=== PATIENT | male | born 1945 | race Caucasian/White ===

== ENCOUNTER 2017-01-18 08:30 | Outpatient (RCR) | payer BC | END 2017-02-13 | disposition home or self-care (01) | LOC: PTY 08:30 | DX: M54.2 Cervicalgia (principal) ==

== ENCOUNTER 2017-02-18 09:30 | Outpatient (RCR) | payer BC | END 2017-03-16 | disposition home or self-care (01) | LOC: PTY 09:30 | DX: M54.2 Cervicalgia (principal) | CPT/HCPCS: 97035; 97110; 97140; G0283 ==

== ENCOUNTER 2017-03-22 10:15 | Outpatient (RCR) | payer BC | END 2017-04-15 | disposition home or self-care (01) | LOC: PTY 10:15 | DX: M54.2 Cervicalgia (principal) | CPT/HCPCS: 97110; 97140; G0283 ==